=== PATIENT | female | born 1980 | race Caucasian/White ===

== ENCOUNTER 2016-05-15 15:57 | Emergency (ER) | payer MEDICAID ==
[~2016-05-15] VITALS: Ht 154.9 cm; Wt 76.0 kg
[~2016-05-15 15:57] MED LIST: IBUP-1542 PO; PREN-29 PO
[2016-05-15 16:01] VITALS: Ht 154.9 cm; Wt 76.0 kg
[2016-05-15] MEDS ORDERED: AZIT250T94 PO (16:44)
[2016-05-15] MEDS ORDERED: IBUP-1542 PO (16:44)
[2016-05-15] MEDS ORDERED: BENZ100C70 PO (16:44)
--- NOTE | 2016-05-15 17:03 | ERD ---
ER Documentation Chief Complaint Date/Time DATE: 05/15/16 TIME: 16:59 Chief Complaint FEVER , LT EAR ACHE , RUNNY NOSE X 1 WEEK HPI 35-year-old female with no significant past medical history presents to the ED complaining of left ear pain and feeling like she has a left ear clogging. States that she has had a productive cough since 1 week ago. States that she has been only taking Tylenol for her symptoms. Reports that her daughter and are also sick with similar symptoms. Denies any chest pain, shortness of breath, wheezing, abdominal pain, nausea, vomiting, diarrhea, rashes, sinus pain, dyspnea on exertion, orthopnea, leg swelling. ROS All systems reviewed and are negative except as per history of present illness. Medications Home Meds Active Scripts Benzonatate* (Tessalon Perle*) 100 Mg Capsule, 100 MG PO Q8H Y for COUGH, #30 CAP Prov:TRISTA ALFONSO-C 05/15/16 Azithromycin* (Zithromax*) 250 Mg Tablet, 250 MG PO .ZPACK DIRECTED, #6 TAB TAKE 500 MG (2 TABS) THE FIRST DAY THEN 250 MG (1 TAB) DAYS 2-5 Prov:TRISTA ALFONSO-C 05/15/16 Ibuprofen* (Motrin*) 600 Mg Tab, 600 MG PO Q6, #30 TAB Prov:TRISTA ALFONSO PA-C 05/15/16 Ibuprofen* (Motrin*) 600 Mg Tab, 600 MG PO Q6, #30 TAB Prov:TRISTA ALFONSO-C 11/12/15 Reported Medications Vit-Fe Fumarate-FA* (Umair Tablet*) 1 Tab Tablet, 1 TAB PO DAILY, TAB 03/22/14 Allergies Allergies: Coded Allergies: Penicillins (Verified Allergy, Intermediate, RASH, 01/21/12) PMhx/Soc History of Surgery: No Anesthesia Reaction: No Hx Neurological Disorder: No Hx Respiratory Disorders: No Hx Cardiac Disorders: No Hx Psychiatric Problems: No Hx Miscellaneous Medical Probl: No Hx Alcohol Use: No Hx Substance Use: No Hx Tobacco Use: No Physical Exam Vitals Vital Signs Date Time Temp Pulse Resp B/P Pulse Ox O2 Delivery O2 Flow Rate FiO2 05/15/16 16:01 99.6 67 18 124/62 98 Physical Exam Const: [id number], well-nourished. In no acute distress. Head: Atraumatic, normocephalic Eyes: Normal Conjunctiva without injection. No purulent discharge. PERRL. EOMI ENT: Normal external ear. Right ear canal without erythema. Right tympanic membrane pearly vega without effusion or bulging. Left erythematous ear canal with decreased light reflex. Nasal canal clear with normal turbinates. Moist oropharynx without tonsillar exudates. Non-erythematous pharynx. Uvula midline. No drooling. No trismus. Neck: Full range of motion. No meningismus. No cervical lymphadenopathy. Resp: Clear to auscultation bilaterally. No wheezing, rhonchi, rales, or crackles. No accessory muscle use. No retractions. Cardio: Regular rate and rhythm. No murmurs, rubs or gallops. Abd: Soft, non tender, non distended. Normal bowel sounds. No palpable masses. No rebound tenderness. No guarding. Skin: No petechiae or rashes Back: No midline tenderness. No CVA tenderness. Ext: No cyanosis, or edema. Neur: Awake and alert. Psych: Normal Mood and Affect Procedures/MDM This is a 35-year-old female with no significant past medical history presents the ED complaining of left ear pain and dry cough since 1 week ago. Patient is afebrile and nontoxic-appearing. This patient presents to the ED with symptoms consistent with a viral acute upper respiratory infection with possible left otitis media. Patient's physical exam include lungs which were clear to auscultation and a normal pulse oximetry. There is a low suspicion for pneumonia , pneumothorax, CHF, cardiac dysrhythmias, acute MN, pulmonary embolism, epiglottitis, viral/strep pharyngitis, sinusitis, peritonsillar abscess, mastoiditis, retropharyngeal abscess, meningitis, sepsis, acute abdomen or other emergent conditions. Patient does not have tenderness to palpation of tragus or mastoid. Low suspicion for otitis externa or mastoiditis. Fluids, rest , and symptomatic treatment are recommended for the management of patient's symptoms. Discharge medications: Tessalon Perles, Zithromax, Ibuprofen Patient was instructed to return to the ED for any new or worsening symptoms. They should otherwise follow up with the primary care provider within 1-2 days. The patient's questions were answered at the time of discharge. Patient understood and agreed with discharge management. Departure Diagnosis: Primary Impression: URI (upper respiratory infection) URI type: unspecified URI Qualified Code: J06.9 - Upper respiratory tract infection, unspecified type Additional Impression: Left ear pain Condition: Stable Patient Instructions: Otitis Media, Abx Tx (Adult), Uri, Viral, No Abx (Adult) Referrals: [facility] YOU HAVE RECEIVED A MEDICAL SCREENING EXAM AND THE RESULTS INDICATE THAT YOU DO NOT HAVE A CONDITION THAT REQUIRES URGENT TREATMENT IN THE EMERGENCY DEPARTMENT. FURTHER EVALUATION AND TREATMENT OF YOUR CONDITION CAN WAIT UNTIL YOU ARE SEEN IN YOUR DOCTORS OFFICE WITHIN THE NEXT 1-2 DAYS. IT IS YOUR RESPONSIBILITY TO MAKE AN APPOINTMENT FOR FOLOW-UP CARE. IF YOU HAVE A PRIMARY DOCTOR --you should call your primary doctor and schedule an appointment IF YOU DO NOT HAVE A PRIMARY DOCTOR YOU CAN CALL OUR PHYSICIAN REFERRAL HOTLINE AT IF YOU CAN NOT AFFORD TO SEE A PHYSICIAN YOU CAN CHOSE FROM THE FOLLOWING [facility] [address] [facility]. [facility] [address] [facility] [address] [facility] [address] [facility] [facility] [address] [facility]. [facility] [address] [facility]. [facility] [address] [facility]. [facility] YOU HAVE RECEIVED A MEDICAL SCREENING EXAM AND THE RESULTS INDICATE THAT YOU DO NOT HAVE A CONDITION THAT REQUIRES URGENT TREATMENT IN THE EMERGENCY DEPARTMENT. FURTHER EVALUATION AND TREATMENT OF YOUR CONDITION CAN WAIT UNTIL YOU ARE SEEN IN YOUR DOCTORS OFFICE WITHIN THE NEXT 1-2 DAYS. IT IS YOUR RESPONSIBILITY TO MAKE AN APPOINTMENT FOR FOLOW-UP CARE. IF YOU HAVE A PRIMARY DOCTOR --you should call your primary doctor and schedule and appointment IF YOU DO NOT HAVE A PRIMARY DOCTOR YOU CAN CALL OUR PHYSICIAN REFERRAL HOTLINE AT . IF YOU CAN NOT AFFORD TO SEE A PHYSICIAN YOU CAN CHOSE FROM THE FOLLOWING [facility] INSTITUTIONS: [facility] [address] [place] [address] [facility] [address] [place] [address] [facility] [address] [place] [address] [facility]CIALT[facility] Additional Instructions: Visite a teague case paulino para un EXAMEN.Regrese a estas instalaciones si no se mejora jackelyn esperbamos o jackelyn le dijimos. TRISTA ALFONSO PA-C May 15, 2016 17:02
== END 2016-05-15 16:45 | disposition home or self-care (01) ==
LOC: E/R 15:57
DX: J06.9 Acute upper respiratory infection, unspecified (principal)
CPT/HCPCS: 99284

== ENCOUNTER 2016-07-09 12:01 | Emergency (ER) | payer MEDICAID ==
[~2016-07-09] VITALS: Wt 71.0 kg
[~2016-07-09 12:01] MED LIST changes: +AZIT250T94 PO; +BENZ100C70 PO
--- NOTE | 2016-07-09 12:53 | ERD ---
ER Documentation Chief Complaint Date/Time DATE: 07/09/16 TIME: 12:50 Chief Complaint LEFT LEG PAIN X 2 WEEKS HPI Patient is a 35-year-old female who presents with 2 weeks of redness and swelling to the left medial calf. Patient states that the symptoms began as a small pimple and have gradually gradually enlarged, but have been stable for the last week. No fevers, no trauma, no swelling of the extremity, no tenderness outside of the focal area of erythema. Patient states that she is 7 weeks . ROS All systems reviewed and are negative except as per history of present illness. Medications Home Meds Active Scripts Cephalexin* (Keflex*) 500 Mg Capsule, 500 MG PO QID for 7 Days, CAP Prov:SHERRIE NELSON 07/09/16 Benzonatate* (Tessalon Perle*) 100 Mg Capsule, 100 MG PO Q8H Y for COUGH, #30 CAP Prov:TRISTA ALFONSO-C 05/15/16 Azithromycin* (Zithromax*) 250 Mg Tablet, 250 MG PO .ZPACK DIRECTED, #6 TAB TAKE 500 MG (2 TABS) THE FIRST DAY THEN 250 MG (1 TAB) DAYS 2-5 Prov:TRISTA ALFONSO PA-C 05/15/16 Ibuprofen* (Motrin*) 600 Mg Tab, 600 MG PO Q6, #30 TAB Prov:TRISTA ALFONSO PA-C 05/15/16 Ibuprofen* (Motrin*) 600 Mg Tab, 600 MG PO Q6, #30 TAB Prov:TRISTA ALFONSO PA-C 11/12/15 Reported Medications Vit-Fe Fumarate-FA* (Umair Tablet*) 1 Tab Tablet, 1 TAB PO DAILY, TAB 03/22/14 Allergies Allergies: Coded Allergies: Penicillins (Verified Allergy, Intermediate, RASH, 01/21/12) PMhx/Soc Past medical history: Denies Past surgical history: Denies Social history: No alcohol or tobacco History of Surgery: No Anesthesia Reaction: No Hx Neurological Disorder: No Hx Respiratory Disorders: No Hx Cardiac Disorders: No Hx Psychiatric Problems: No Hx Miscellaneous Medical Probl: No Hx Alcohol Use: No Hx Substance Use: No Hx Tobacco Use: No Smoking Status: Never smoker FmHx Family History: No diabetes Physical Exam Vitals Vital Signs Date Time Temp Pulse Resp B/P Pulse Ox O2 Delivery O2 Flow Rate FiO2 07/09/16 12:16 98.0 81 18 130/68 99 Physical Exam Const: Alert, oriented, no acute distress Head: Atraumatic Eyes: Normal Conjunctiva ENT: Normal External Ears, Nose and Mouth. Neck: Full range of motion..~ No meningismus. Resp: Clear to auscultation bilaterally Cardio: Regular rate and rhythm, no murmurs Abd: Soft, non tender, non distended. Normal bowel sounds Skin: Left medial calf has area of approximately 3 cm of erythema and induration, blanching, no fluctuance, no bullae Back: No midline or flank tenderness Ext: No cyanosis, or edema, no generalized calf tenderness or medial thigh tenderness Neur: Awake and alert Psych: Normal Mood and Affect Results 24 hrs Current Medications Medications (Trade) Dose Ordered Sig/Keny Route PRN Reason Start Time Stop Time Status Last Admin Dose Admin Lidocaine/ Epinephrine (Xylocaine 1%/ Epi (Mdv) 20 ml) 20 ml ONCE ONCE SC 07/09/16 13:00 07/09/16 13:01 DC Procedures/MDM Procedure: Patient verbally consented for incision and drainage of left calf abscess. Skin cleaned with Betadine. 3 cc 1% lidocaine with epinephrine injected in local block. Needle aspiration performed with 18-gauge needle with small amount of pus drained. 5 mm incision made with 11 blade scalpel. Abscess probed with bluntly with Tayler forceps and moderate amount of pus expressed. Procedure well-tolerated, no immediate complication. Sterile dry dressing applied. MDM: Patient with erythema and induration of left calf found to have abscess. Incision and drainage performed to good effect. Given small area of surrounding cellulitis will discharge patient with 70 course of Keflex. Patient does have penicillin allergy but has never taken cephalosporins, and risk of cross reaction is very low. In addition the patient is so there are few safe options for outpatient treatment of cellulitis. Patient is advised to return for any worsening of infection or medication reaction to take Tylenol for pain. Departure Diagnosis: Primary Impression: Abscess of leg Condition: SHERRIE Acosta Jul 09, 2016 12:53
[2016-07-09] MEDS ORDERED: LIDOCAINE 1%/EPI (MDV) 20 ML INJ SC ONE (13:00)
[2016-07-09] MEDS ORDERED: CEPH-443 PO (13:23)
== END 2016-07-09 13:50 | disposition home or self-care (01) ==
LOC: FTE 12:01
DX: L02.416 Cutaneous abscess of left lower limb (principal)
CPT/HCPCS: 10060; Z7502; Z7610

== ENCOUNTER 2016-07-12 10:52 | Emergency (ER) | payer MEDICAID ==
[~2016-07-12] VITALS: Ht 160 cm; Wt 89.0 kg
[~2016-07-12 10:52] MED LIST changes: +CEPH-443 PO
[2016-07-12 11:00] VITALS: Ht 160 cm; Wt 89.0 kg
--- NOTE | 2016-07-12 13:25 | ERD ---
ER Documentation Chief Complaint Date/Time DATE: 07/12/16 TIME: 13:24 Chief Complaint leftr leg wound check HPI This 35-year-old female presents here for a wound check on her left thigh abscess drained 2 days ago. She is taking antibiotics. She states that her pain and swelling is improved. ROS All systems reviewed and are negative except as per history of present illness. Medications Home Meds Active Scripts Cephalexin* (Keflex*) 500 Mg Capsule, 500 MG PO QID for 7 Days, CAP Prov:SHERRIE NELSON 07/09/16 Benzonatate* (Tessalon Perle*) 100 Mg Capsule, 100 MG PO Q8H Y for COUGH, #30 CAP Prov:TRISTA ALFONSO-C 05/15/16 Azithromycin* (Zithromax*) 250 Mg Tablet, 250 MG PO .ZPACK DIRECTED, #6 TAB TAKE 500 MG (2 TABS) THE FIRST DAY THEN 250 MG (1 TAB) DAYS 2-5 Prov:TRISTA ALFONSO-C 05/15/16 Ibuprofen* (Motrin*) 600 Mg Tab, 600 MG PO Q6, #30 TAB Prov:TRISTA ALFONSO PA-C 05/15/16 Ibuprofen* (Motrin*) 600 Mg Tab, 600 MG PO Q6, #30 TAB Prov:TRISTA ALFONSO-C 11/12/15 Reported Medications Vit-Fe Fumarate-FA* (Umair Tablet*) 1 Tab Tablet, 1 TAB PO DAILY, TAB 03/22/14 Allergies Allergies: Coded Allergies: Penicillins (Verified Allergy, Intermediate, RASH, 01/21/12) PMhx/Soc History of Surgery: No Anesthesia Reaction: No Hx Neurological Disorder: No Hx Respiratory Disorders: No Hx Cardiac Disorders: No Hx Psychiatric Problems: No Hx Miscellaneous Medical Probl: No Hx Alcohol Use: No Hx Substance Use: No Hx Tobacco Use: No Physical Exam Vitals Vital Signs Date Time Temp Pulse Resp B/P Pulse Ox O2 Delivery O2 Flow Rate FiO2 07/12/16 11:00 98.2 89 18 139/89 99 Physical Exam Const: [] Head: Atraumatic Eyes: Normal Conjunctiva ENT: Normal External Ears, Nose and Mouth. Neck: Full range of motion..~ No meningismus. Resp: Clear to auscultation bilaterally Cardio: Regular rate and rhythm, no murmurs Abd: Soft, non tender, non distended. Normal bowel sounds Skin: No petechiae or rashes. On the left medial thigh there is a healing abscess with some mild residual induration without appreciable fluctuance, erythema, warmth, streaking Back: No midline or flank tenderness Ext: No cyanosis, or edema Neur: Awake and alert Psych: Normal Mood and Affect Procedures/MDM Patient presents with a satisfactorily appearing healing abscess on left medial thigh. Patient was discharged home with instructions to continue wound care, instructions to continue antibiotics and return for redness, fevers, new or worsening symptoms Departure Diagnosis: Primary Impression: Encounter for wound re-check Condition: Stable Patient Instructions: Post Op Wound Check, Pain Additional Instructions: CONTINUA ANTIBIOTICOS. JEAN LYNN MD Jul 12, 2016 13:25
== END 2016-07-12 14:06 | disposition home or self-care (01) ==
LOC: FTE 10:52
DX: Z48.01 Encounter for change or removal of surgical wound dressing (principal)
CPT/HCPCS: 99281

== ENCOUNTER 2016-07-18 19:40 | Emergency (ER) | payer MEDICAID ==
[~2016-07-18] VITALS: Ht 157.5 cm; Wt 75.0 kg
[2016-07-18 20:41] VITALS: Ht 157.5 cm; Wt 75.0 kg
[2016-07-18 23:53] LABS: ADD SCAN DIFF NO
[2016-07-18 23:54] LABS: BASOPHIL # 0.1 10^3/ul (0.0-0.1); BASOPHILS % 0.3 % (0.0-2.0); EOSINOPHILS # 0.4 10^3/ul (0.0-0.5); EOSINOPHILS % 2.9 % (0.0-7.0); HEMATOCRIT 38.3 % (37.0-47.0); HEMOGLOBIN 12.9 g/dl (12.0-16.0); LYMPHOCYTES # 4.2 10^3/ul (0.8-2.9); LYMPHOCYTES % 29.5 % (15.0-51.0); MEAN CORPUSCULAR HEMOGLOBIN 30.4 pg (29.0-33.0); MEAN CORPUSCULAR HGB CONC 33.7 g/dl (32.0-37.0); MEAN CORPUSCULAR VOLUME 90.3 fl (82.0-101.0); MEAN PLATELET VOLUME 9.4 fl (7.4-10.4); MONOCYTE # 0.6 10^3/ul (0.3-0.9); MONOCYTES % 4.2 % (0.0-11.0); NEUTROPHILS % 62.9 % (39.0-77.0); PLATELET COUNT 426 10^3/UL (140-415); RED BLOOD COUNT 4.24 10^6/ul (4.20-5.40); RED CELL DISTRIBUTION WIDTH 12.8 % (11.5-14.5); WHITE BLOOD COUNT 14.4 10^3/ul (4.8-10.8)
[2016-07-19 00:05] LABS: ADD UMIC YES; URINE BILIRUBIN (Dip) NEGATIVE (NEGATIVE); URINE BLOOD (Dip) NEGATIVE (NEGATIVE); URINE COLOR LT. YELLOW (YELLOW); URINE GLUCOSE (Dip) NEGATIVE (NEGATIVE); URINE KETONES (Dip) NEGATIVE (NEGATIVE); URINE LEUKOCYTE ESTERASE (Dip) 1+ (NEGATIVE); URINE NITRITE (Dip) NEGATIVE (NEGATIVE); URINE TOTAL PROTEIN (Dip) NEGATIVE (NEGATIVE); URINE UROBILINOGEN (Dip) 0.2 E.U./dL (0.1-1.0)
[2016-07-19 00:09] LABS: ALBUMIN 4.4 g/dl (3.3-4.9)
[2016-07-19 00:10] LABS: POTASSIUM 3.9 mmol/L (3.5-5.1)
[2016-07-19 00:12] LABS: ALBUMIN/GLOBULIN RATIO 1.18; BILIRUBIN,INDIRECT 0.2 mg/dl (0-1.1); BILIRUBIN,TOTAL 0.2 mg/dl (0.2-1.3); CREATININE 0.52 mg/dl (0.44-1.00); TOTAL PROTEIN 8.1 g/dl (6.1-8.1)
[2016-07-19 00:13] LABS: CALCIUM 9.4 mg/dl (8.4-10.2)
[2016-07-19 00:16] LABS: SQUAMOUS EPITHELIAL CELL,UR MODERATE; URINE RBCS 0-2 /HPF (0)
[2016-07-19 00:17] LABS: BACTERIA,URINE FEW
--- NOTE | 2016-07-19 00:41 | ERD ---
ER Documentation Chief Complaint Date/Time DATE: 07/19/16 TIME: 00:37 Chief Complaint AP X 2 days HPI 35-year-old female presents with chief complaint of diarrhea 2 days. Patient states that she has had multiple episodes diarrhea yesterday and today. Associated symptoms include abdominal cramping only during episodes of diarrhea. She denies hematochezia, nausea, vomiting, constant abdominal pain, pelvic pain, vaginal bleeding, and fever. She denies recent travel. She denies any sick contacts with similar symptoms. ROS All systems reviewed and are negative except as per history of present illness. Medications Home Meds Active Scripts Nitrofurantoin Monohyd Macrocr* (Macrobid*) 100 Mg Capsr, 100 MG PO BID for 5 Days, #10 CAP Prov:Ghazala Javier PA-C 07/19/16 Cephalexin* (Keflex*) 500 Mg Capsule, 500 MG PO QID for 7 Days, CAP Prov:SHERRIE NELSON 07/09/16 Benzonatate* (Tessalon Perle*) 100 Mg Capsule, 100 MG PO Q8H Y for COUGH, #30 CAP Prov:TRISTA ALFONSO PA-C 05/15/16 Azithromycin* (Zithromax*) 250 Mg Tablet, 250 MG PO .ZPACK DIRECTED, #6 TAB TAKE 500 MG (2 TABS) THE FIRST DAY THEN 250 MG (1 TAB) DAYS 2-5 Prov:TRISTA ALFONSO PA-C 05/15/16 Ibuprofen* (Motrin*) 600 Mg Tab, 600 MG PO Q6, #30 TAB Prov:TRISTA ALFONSO PA-C 05/15/16 Ibuprofen* (Motrin*) 600 Mg Tab, 600 MG PO Q6, #30 TAB Prov:TRISTA ALFONSO PA-C 11/12/15 Reported Medications Vit-Fe Fumarate-FA* (Umair Tablet*) 1 Tab Tablet, 1 TAB PO DAILY, TAB 03/22/14 Allergies Allergies: Coded Allergies: Penicillins (Verified Allergy, Intermediate, RASH, 01/21/12) PMhx/Soc Medical and Surgical Hx: pt denies Medical Hx, pt denies Surgical Hx History of Surgery: No Anesthesia Reaction: No Hx Neurological Disorder: No Hx Respiratory Disorders: No Hx Cardiac Disorders: No Hx Psychiatric Problems: No Hx Miscellaneous Medical Probl: No Hx Alcohol Use: No Hx Substance Use: No Hx Tobacco Use: No Smoking Status: Never smoker Physical Exam Vitals Vital Signs Date Time Temp Pulse Resp B/P Pulse Ox O2 Delivery O2 Flow Rate FiO2 07/19/16 01:29 61 16 147/69 98 Room Air 07/18/16 20:41 98.3 68 18 122/85 99 Physical Exam GENERAL: Non-toxic. No apparent signs of distress. LUNGS: Clear to auscultation. No accessory muscle use. No wheezing, no crackles. No signs or symptoms of respiratory distress. HEART: Regular rate and rhythm. No murmurs, clicks, rubs or gallops. ABDOMEN: Soft, nontender and nondistended. Bowel sounds positive. No rebound or guarding. No gross peritoneal signs. No Pruett or McBurney point tenderness. No gross masses. BACK: No midline tenderness, no costovertebral tenderness. NEURO: Cranial nerves are grossly intact. Normal mental status for age. Good muscle tone. SKIN: There is no apparent rash, petechiae, erythema or swelling. Good skin turgor. Result Diagram: 07/18/16 2347 07/18/16 2347 Results 24 hrs Laboratory Tests Test 07/18/16 23:47 07/18/16 23:50 Alanine Aminotransferase (ALT/SGPT) 23IU/L Albumin 4.4g/dl Albumin/Globulin Ratio 1.18 Alkaline Phosphatase 95IU/L Anion Gap 17 Aspartate Amino Transf (AST/SGOT) 16IU/L Basophils # 0.110^3/ul Basophils % 0.3% Beta HCG, Quantitative 39761.0mIU/ml Blood Urea Nitrogen 8mg/dl Calcium Level 9.4mg/dl Carbon Dioxide Level 24mmol/L Chloride Level 104mmol/L Creatinine 0.52mg/dl Direct Bilirubin 0.00mg/dl Eosinophils # 0.410^3/ul Eosinophils % 2.9% Globulin 3.70g/dl Glucose Level 85mg/dl Hematocrit 38.3% Hemoglobin 12.9g/dl Indirect Bilirubin 0.2mg/dl Lymphocytes # 4.210^3/ul Lymphocytes % 29.5% Mean Corpuscular Hemoglobin 30.4pg Mean Corpuscular Hemoglobin Concent 33.7g/dl Mean Corpuscular Volume 90.3fl Mean Platelet Volume 9.4fl Monocytes # 0.610^3/ul Monocytes % 4.2% Neutrophils # 9.010^3/ul Neutrophils % 62.9% Nucleated Red Blood Cells # 0.010^3/ul Nucleated Red Blood Cells % 0.0/100WBC Platelet Count 55716^3/UL Potassium Level 3.9mmol/L Red Blood Count 4.2410^6/ul Red Cell Distribution Width 12.8% Sodium Level 141mmol/L Total Bilirubin 0.2mg/dl Total Protein 8.1g/dl White Blood Count 14.410^3/ul Urine Bacteria FEW Urine Bilirubin NEGATIVE Urine Clarity SL HAZY Urine Color LT. YELLOW Urine Glucose NEGATIVE% Urine Hemoglobin NEGATIVE Urine Ketones NEGATIVE Urine Leukocyte Esterase 1+ Urine Microscopic RBC 0-2/HPF Urine Microscopic WBC 5-10/HPF Urine Nitrite NEGATIVE Urine Specific [place] 1.010 Urine Squamous Epithelial Cells MODERATE Urine Total Protein NEGATIVE Urine Urobilinogen 0.2 E.U./dL Urine pH 6.0 Procedures/MDM Patient appeared to be in no acute distress, she states that symptoms started 2 days ago she is currently afebrile with stable vitals. I ordered a CBC, CMP to assess for severe dehydration or electrolyte imbalance. In addition I ordered a stool culture even though duration has been short due to patient being and increased risk of infections during . Awaiting results prior to further evaluation. CBC: No signs of anemia or hemoconcentration, there is a mild leukocytosis which is likely due to stress reaction or viral gastroenteritis CMP: No signs of severe dehydration or electrolyte imbalance Beta hCG quant: 54, 172 (appropriate for 8 week ) UA: 1+ leukocyte esterase, no nitrites Patient's labs do not suggest severe infection or dehydration. I explained to the patient that acute episodes of diarrhea not treated with antimotility agents generally. Symptoms should remove resolve within the next few days. She is scheduled for an ultrasound tomorrow with her [facility]. At this time low suspicion for hypokalemia, acute surgical abdomen, severe dehydration, and metabolic acidosis. Patient is stable for discharge and outpatient management. Provided a prescription for Macrobid. Advised to follow-up with PCP in 1-2 days. And keep her scheduled appointment [facility] tomorrow. Departure Diagnosis: Primary Impression: Diarrhea Diarrhea type: unspecified type Qualified Code: R19.7 - Diarrhea, unspecified type Additional Impression: UTI (urinary tract infection) Urinary tract infection type: acute cystitis Hematuria presence: without hematuria Qualified Code: N30.00 - Acute cystitis without hematuria Condition: Ghazala Fishman PA-C Jul 19, 2016 00:41
[2016-07-19] MEDS ORDERED: NITR-58 PO (01:06)
[2016-07-19 01:29] VITALS: BP 147/69; PULSE 61; RESP 16
== END 2016-07-19 01:30 | disposition home or self-care (01) ==
LOC: FTE 19:40
DX: O99.89 Other specified diseases and conditions complicating pregnancy, childbirth and the puerperium (principal); R19.7 Diarrhea, unspecified; O23.11 Infections of bladder in pregnancy, first trimester; Z3A.08 8 weeks gestation of pregnancy
CPT/HCPCS: 80053; 81001; 84702; 85025; Z7502; 81003; 99283

== ENCOUNTER 2017-02-07 20:10 | Inpatient (IN) | payer MEDICAID ==
[~2017-02-07] VITALS: Ht 154.9 cm; Wt 83.6 kg
[~2017-02-07 20:10] MED LIST changes: +NITR-58 PO
[2017-02-07 20:35] VITALS: BP 120/64; PULSE 78; RESP 16
[2017-02-07 20:36] VITALS: Ht 154.9 cm; Wt 83.6 kg
--- NOTE | 2017-02-07 21:58 | RADRPT ---
PROCEDURE: Obstetrical ultrasound CLINICAL INDICATION: . OB ultrasound with fluid volume assessment. TECHNIQUE: Transabdominal sonographic images of the uterus obtained after first trimester , greater than 14 weeks gestation. Single intrauterine gestation present. Examination for fluid volu me assessment. COMPARISON: 12/20/2016 FINDINGS: Presentation: Cephalic Partially visualized placenta: anterior heart rate: 138 Beats per minute. IMPRESSION: Amniotic fluid index equals 5.8 cm. Previously 12.8 cm. Borderline oligohydramnios. RPTAT: AADD .Sanju Yu MD, MD Date Time Electronically viewed and signed by .Sanju Yu MD, on 02/07/2017 21:57 .B/
[2017-02-07] MEDS ORDERED: OXYTOCIN 30 UNITS/LR 500 ML IV SCH ×2 (23:00)
[2017-02-07] MEDS ORDERED: MISOPROSTOL 200 MCG TAB PR PRN (23:00)
[2017-02-07] MEDS ORDERED: CARBOPROST 250 MCG INJ IM PRN (23:00)
[2017-02-07] MEDS ORDERED: IBUPROFEN 600 MG TAB PO PRN (23:00)
[2017-02-07] MEDS ORDERED: METHYLERGONOVINE 0.2 MG INJ IM PRN (23:00)
[2017-02-07] MEDS ORDERED: OXYTOCIN 30 UNITS/LR 500 ML IV PRN (23:00)
[2017-02-07] MEDS ORDERED: BUTORPHANOL 2 MG INJ IV PRN (23:00)
[2017-02-07] MEDS ORDERED: LIDOCAINE 1% (MPF) 30 ML INJ INJ PRN (23:00)
[2017-02-07] MEDS ORDERED: DINOPROSTONE 10 MG VAG SUPP VAG ONE (23:00)
[2017-02-08] MEDS ORDERED: CLINDAMYCIN 900 MG/D5W (PMX) 50 ML IVPB SCH
[2017-02-08] MEDS: LACTATED RINGER'S 1,000 ML IV SCH ×3 (00:17→15:57)
--- NOTE | 2017-02-08 00:30 | TRIAGE ---
OB Triage Datetime Report Generated by CPN: 02/08/2017 00:30 Datetime: 02/07/2017 23:42 Assessment Type: Admission Assessment Vaginal Bleeding: None Maternal Assessment Level of Consciousness: Fully Conscious DTR's/Clonus: DTRs 2+; No Clonus Headache: Denies Blurred Vision: No Respiratory Effort: Unlabored; Regular Rhythm; Equal Expansion Breath Sounds, Left: Clear and Equal Breath Sounds, Right: Clear and Equal Nausea/Vomiting: Denies RUQ Epigastric Pain: Denies Lower Extremities Edema: None Degree: None Upper Extremities Edema: None Degree: None Facial Edema: None Fall Risk Assessment History of Falling: (0) No Secondary Diagnosis: (0) No Ambulatory Aid: (0) Bedrest/Nurse Assist IV Therapy: (0) No Gait: (0) Normal/Bedrest/Immobile Mental Status: (0) Oriented to Own Ability Fall Score: 0 Fall Risk Score Definition: No Risk: No action required Pain Assessment Pain Scale: 0 Pain Presence: None/Denies Datetime: 02/07/2017 23:37 Membrane Status: Intact Datetime: 02/07/2017 23:15 Stage of : Labor Datetime: 02/07/2017 21:40 Stage of : OB Triage Labor Evaluation Frequency: 2--8 Monitor Mode: External Duration (sec)2399: 20-100sec Quality: Mild Pattern: Normal: <= 5 Contractions in 10 Minutes Resting Tone [place]: Relaxed Heart Rate FHR Baseline Rate: 135 Monitor Mode: External US Variability: Moderate 6-25 bpm Accelerations: 15X15 Datetime: 02/07/2017 21:03 Pain Presence: None/Denies Pain Type: N/A Datetime: 02/07/2017 20:52 Vaginal Exam Dilatation (cms): 0.0 Effacement (%): 30 Station: -3 Cervix, Position: Posterior Datetime: 02/07/2017 20:32 Assessment Type: Triage Maternal Assessment Level of Consciousness: Fully Conscious DTR's/Clonus: DTRs 2+; No Clonus Headache: Denies Blurred Vision: No Respiratory Effort: Unlabored; Regular Rhythm; Equal Expansion Breath Sounds, Left: Clear and Equal Breath Sounds, Right: Clear and Equal Nausea/Vomiting: Denies RUQ Epigastric Pain: Denies Lower Extremities Edema: Bilateral Lower Extremities Degree: 1+ Upper Extremities Edema: None Degree: None Facial Edema: None Fall Risk Assessment History of Falling: (0) No Secondary Diagnosis: (0) No Ambulatory Aid: (0) Bedrest/Nurse Assist IV Therapy: (0) No Gait: (0) Normal/Bedrest/Immobile Mental Status: (0) Oriented to Own Ability Fall Score: 0 Fall Risk Score Definition: No Risk: No action required Datetime: 02/07/2017 20:31 Time of Arrival: 02/07/2017 23:15 EGA: 38.0 Arrived By: Ambulatory Arrived From: Home Datetime: 02/07/2017 20:28 Time of Arrival: 02/07/2017 20:04 Arrived By: Wheelchair Arrived From: Emergency Dept Chief Complaint: X1 CONTRACTION AT 0900 THAT LASTED A MINUTE AND THEN X1 CONTRACTION AT 1700 LASTI NG 1MIN BUT ONCE AGAIN RESOLVED AND PT NOT FEELING UC'S AT THIS TIME. Movement: Present Contractions: Irregular Time Contractions Began: 02/07/2017 17:00 Rupture of Membranes: Denies Vaginal Bleeding: None Vaginal Discharge: Denies Recent Sexual Intercouse: Denies Abdominal Trauma: Not Applicable Patient Complaints: Contractions Additional Patient Complaints: POSSIBLE LEAKING NOTED AT 0900 BUT NONE THEREAFTER Time Provider Notified: 02/07/2017 20:57 Provider Notified: Dr Botello Initial Plan: MONITOR BABY
[2017-02-08 01:04] LABS: BASOPHILS % 0.2 % (0.0-2.0); EOSINOPHILS # 0.2 10^3/ul (0.0-0.5); EOSINOPHILS % 1.3 % (0.0-7.0); HEMATOCRIT 37.5 % (37.0-47.0); HEMOGLOBIN 12.3 g/dl (12.0-16.0); LYMPHOCYTES # 3.1 10^3/ul (0.8-2.9); LYMPHOCYTES % 25.1 % (15.0-51.0); MEAN CORPUSCULAR HEMOGLOBIN 29.1 pg (29.0-33.0); MEAN CORPUSCULAR HGB CONC 32.8 g/dl (32.0-37.0); MEAN CORPUSCULAR VOLUME 88.7 fl (82.0-101.0); MEAN PLATELET VOLUME 11.2 fl (7.4-10.4); MONOCYTE # 0.7 10^3/ul (0.3-0.9); MONOCYTES % 5.6 % (0.0-11.0); NEUTROPHIL # 8.3 10^3/ul (1.6-7.5); NEUTROPHILS % 67.3 % (39.0-77.0); PLATELET COUNT 280 10^3/UL (140-415); RED BLOOD COUNT 4.23 10^6/ul (4.20-5.40); RED CELL DISTRIBUTION WIDTH 15.2 % (11.5-14.5); WHITE BLOOD COUNT 12.2 10^3/ul (4.8-10.8)
[2017-02-08 01:20] LABS: INR 1.02; PROTIME 13.4 Sec (12.2-14.2)
[2017-02-08 01:21] LABS: PARTIAL THROMBOPLASTIN TIME 28.4 Sec (25.0-35.0)
--- NOTE | 2017-02-08 01:40 | RADRPT ---
PROCEDURE: OBSTETRICAL ULTRASOUND LIMITED CLINICAL INDICATION: 36 years of age, female. . Labor. TECHNIQUE: Multiple sonographic images of the pelvis were obtained. Transabdominal imaging only w as performed. The images were reviewed on a PACS workstation. Image quality: Satisfactory. COMPARISON: Amniotic fluid index from earlier the same day FINDINGS: [place] : Number of fetuses: 1 GENERAL EVALUATION: Cardiac activity: Present. FHR 166 bpm Presentation: Cephalic Placenta: Placenta site: Anterior. No evidence of placental previa. Placental grade 2. Amniotic fluid: Oligohydramnios ABAD 5.2 cm. Cervix (transabdominal): Not evaluated DATING: EGA by dates: 38 weeks 0 days DIOR by dates: February 21, 2017 BIOMETRY: BPD = not measured HC = 32.3 cm , 36 weeks 3 days AC = 32.9 cm , 36 weeks 6 days FL = 7.3 cm , 37 weeks 4 days Composite sonographic age: 37 weeks 0 days plus or minus 3 weeks Estimated due date by ultrasound measurements: February 28, 2017 EFW 3049 grams that is at the 32 percentile for gestational age. LIMITED ANATOMY: Not evaluated IMPRESSION: 1. Single living fetus in cephalic presentation. 2. Clinical gestation age of 38 weeks 0 days and clinical DIOR February 21, 2017 are concordant with the composite sonographic age within 1 week. 3. Estimated weight is 3049 grams that is at the 32nd percentile for gestational age. 4. Oligohydramnios. Amniotic fluid index is 5.2 cm. 5. Anterior placenta grade 2. Findings were discussed with Candy Milner RN by Dr. Vicki Chávez on February 08, 2017 at 1:40 AM. RPTAT: HCTS Physician Eulalia Date Time Electronically viewed and signed by Physician Eulalia on 02/08/2017 01:40 CS/
[2017-02-08] MEDS ORDERED: LACTATED RINGER'S 1,000 ML IV PRN (02:00)
[2017-02-08] MEDS: CLINDAMYCIN 900 MG/D5W (PMX) 50 ML IVPB SCH ×2 (08:23→15:57)
[2017-02-08] MEDS ORDERED: DINOPROSTONE 10 MG VAG SUPP VAG ONE (14:00)
[2017-02-08 21:15] LABS: ADD UMIC NO; UR ASCORBIC ACID NEGATIVE (NEGATIVE); UR BILIRUBIN (Dip) NEGATIVE (NEGATIVE); UR BLOOD (Dip) NEGATIVE (NEGATIVE); UR CLARITY CLEAR (CLEAR); UR COLOR STRAW (YELLOW); UR GLUCOSE (Dip) NEGATIVE (NEGATIVE); UR KETONES (Dip) 1+ mg/dL (NEGATIVE); UR LEUKOCYTE ESTERASE (Dip) NEGATIVE Leu/ul (NEGATIVE); UR NITRITE (Dip) NEGATIVE (NEGATIVE); UR TOTAL PROTEIN (Dip) NEGATIVE (NEGATIVE); UR UROBILINOGEN (Dip) NEGATIVE (NEGATIVE)
[2017-02-08] MEDS ORDERED: FENTAnyl 2MCG/ML-ROPIV 0.2% 100 ML ONE (22:10)
[2017-02-08] MEDS ORDERED: HYDROmorphONE 1 MG/ML SYG IV PRN ×2 (23:00)
[2017-02-08] MEDS ORDERED: KETOROLAC 30 MG INJ IV PRN (23:00)
[2017-02-08] MEDS ORDERED: DIPHENHYDRAMINE 50 MG INJ IV PRN (23:00)
[2017-02-08] MEDS ORDERED: ZOLPIDEM 5 MG TAB PO PRN (23:00)
[2017-02-08] MEDS ORDERED: NALOXONE (0.4 MG/ML) INJ IV PRN (23:00)
[2017-02-08] MEDS ORDERED: FENTAnyl 2MCG/ML-ROPIV 0.2% 100 ML BAG EPI SCH (23:00)
[2017-02-08] MEDS ORDERED: ONDANSETRON 4 MG INJ IV PRN (23:00)
[2017-02-09] MEDS: CLINDAMYCIN 900 MG/D5W (PMX) 50 ML IVPB SCH (00:16)
[2017-02-09] MEDS ORDERED: OXYTOCIN 30 UNITS/LR 500 ML IV SCH ×2 (00:30→03:00)
[2017-02-09] MEDS: LACTATED RINGER'S 1,000 ML IV SCH (02:36)
--- NOTE | 2017-02-09 03:59 | LDN ---
Date/Time of Note Date/Time of Note DATE: 02/09/17 TIME: 03:58 Delivery Summary pt delivered viable infant without complications Placenta Delivered: Spontaneously Laceration repair: 2nd degree lac repaited with 2-0 chromic Anesthesia type: Epidural Estimated blood loss: 150 Sponge & Needle done & correct: Yes All needle counts correct: Yes Any foreign bodies felt in the: No Problems: Infant Delivery Information Suctioning Nose & mouth suctioned at grover: Yes Delee suction performed: No Umbilical Cord Umbilical cord with: 3 Vessels Cord presentations: no nuchal cord Cord Blood was obtained: Yes ALEKSANDER RAMIREZ MD Feb 09, 2017 03:59
[2017-02-09 06:15] VITALS: BP 127/66; PULSE 73; RESP 18
[2017-02-09] MEDS ORDERED: LACTATED RINGER'S 1,000 ML IV* SCH (06:16)
[2017-02-09] MEDS ORDERED: MISOPROSTOL 200 MCG TAB PR PRN (06:30)
[2017-02-09] MEDS ORDERED: DIBUCAINE 1% 30 GM OINT PR PRN (06:30)
[2017-02-09] MEDS ORDERED: WITCH HAZEL/GLYCERIN PAD PR PRN (06:30)
[2017-02-09] MEDS ORDERED: DIPHENHYDRAMINE 25 MG CAP PO PRN (06:30)
[2017-02-09] MEDS ORDERED: CARBOPROST 250 MCG INJ IM PRN (06:30)
[2017-02-09] MEDS ORDERED: BENZOCAINE 20% 56 ML SPRAY TOP PRN (06:30)
[2017-02-09] MEDS ORDERED: OXYTOCIN 30 UNITS/LR 500 ML IV PRN (06:30)
[2017-02-09] MEDS ORDERED: METHYLERGONOVINE 0.2 MG INJ IM PRN (06:30)
[2017-02-09] MEDS ORDERED: HYDROCODONE/APAP (5/325) TAB PO PRN (06:30)
[2017-02-09] MEDS ORDERED: BENZONATATE 100 MG CAP PO PRN (06:30)
[2017-02-09] MEDS ORDERED: AZITHROMYCIN 250 MG TAB PO SCH (06:30)
[2017-02-09 08:00] VITALS: BP 115/57; PULSE 84; RESP 18
[2017-02-09] MEDS: SENNA/DOCUSATE NA (8.6MG/50MG) TAB PO SCH ×2 (08:39→21:40)
[2017-02-09] MEDS: OXYTOCIN 30 UNITS/LR 500 ML IV SCH ×2 (08:49→17:56)
[2017-02-09] MEDS ORDERED: NITROFURANTOIN (SR) 100 MG CAP PO SCH (09:00)
[2017-02-09] MEDS ORDERED: CEPHALEXIN 500 MG CAP PO SCH (09:00)
[2017-02-09 12:00] VITALS: BP 102/50; PULSE 78; RESP 16
[2017-02-09] MEDS ORDERED: IBUPROFEN 600 MG TAB PO SCH ×2 (12:00)
[2017-02-09] MEDS: IBUPROFEN 600 MG TAB PO SCH ×3 (12:13→23:57)
[2017-02-09 16:00] VITALS: BP 104/53; PULSE 67; RESP 17
[2017-02-09 20:20] VITALS: BP 123/71; PULSE 77; RESP 18
[2017-02-10] MEDS: IBUPROFEN 600 MG TAB PO SCH ×4 (05:33→23:54)
[2017-02-10 08:08] VITALS: BP 121/57; PULSE 76; RESP 18
[2017-02-10] MEDS ORDERED: INFLUENZA VIRUS VACCINE 0.5 ML (DISPENSING) IM* ONE (09:00)
--- NOTE | 2017-02-10 09:07 | HP ---
Date/Time of Note Date/Time of Note DATE: 02/10/17 TIME: 09:06 OB - History Hx of Present Free Text/Dictation term preg in labor Care: Good Care Ultrasounds: Normal mid trimester US Obstetrical Complications: None Medical Complications: None Past Family/Social History * Past Medical, Surgical, Family and Obstetric Histories reviewed from chart. OB Admission Exam Vital Signs Vital Signs Vital Signs Date Time Temp Pulse Resp B/P Pulse Ox O2 Delivery O2 Flow Rate FiO2 02/10/17 08:08 97.7 76 18 121/57 Room Air Physical Exam HEENT: WNL Heart: Rhythm Normal Lungs: Clear, Equal Abdomen: WNL Extremities: Normal Reflexes: Normal Cervical Dilatation: 10cm Effacement: 100% Station: +3 Amniotic Fluid: Clear Heart Rate: 130's Decelerations: No Decelerations Contractions on Admission: None Last 72 hours Lab Results CBC & BMP 02/08/17 00:06 OB Assessment/Plan Reason for admission: active labor Plan: Expectant Management OLVIN HANLEY MD Feb 10, 2017 09:07
--- NOTE | 2017-02-10 09:08 | DS ---
Date/Time of Note Date/Time of Note DATE: 02/10/17 TIME: 09:07 Discharge Summary Admission/Discharge Info Admit Date/Time Feb 07, 2017 at 22:40 Discharge Date/Time Discharge Diagnosis term preg , vaginal delivery Patient Condition: Stable Hospital Course unremarkable Home Meds Active Scripts Nitrofurantoin Monohyd Macrocr* (Macrobid*) 100 Mg Capsr, 100 MG PO BID for 5 Days, #10 CAP Prov:Ghazala Javier PA-C 07/19/16 Cephalexin* (Keflex*) 500 Mg Capsule, 500 MG PO QID for 7 Days, CAP Prov:SHERRIE NELSON 07/09/16 Benzonatate* (Tessalon Perle*) 100 Mg Capsule, 100 MG PO Q8H Y for COUGH, #30 CAP Prov:TRISTA ALFONSO PA-C 05/15/16 Azithromycin* (Zithromax*) 250 Mg Tablet, 250 MG PO .ZPACK DIRECTED, #6 TAB TAKE 500 MG (2 TABS) THE FIRST DAY THEN 250 MG (1 TAB) DAYS 2-5 Prov:TRISTA ALFONSO PA-C 05/15/16 Ibuprofen* (Motrin*) 600 Mg Tab, 600 MG PO Q6, #30 TAB Prov:TRISTA ALFONSO PA-C 05/15/16 Ibuprofen* (Motrin*) 600 Mg Tab, 600 MG PO Q6, #30 TAB Prov:TRISTA ALFONSO PA-C 11/12/15 Reported Medications Vit-Fe Fumarate-FA* (Umair Tablet*) 1 Tab Tablet, 1 TAB PO DAILY, TAB 03/22/14 Primary Care Provider Care Physician No Primary OLVIN HANLEY MD Feb 10, 2017 09:08
[2017-02-10] MEDS: SENNA/DOCUSATE NA (8.6MG/50MG) TAB PO SCH ×2 (09:16→21:40)
--- NOTE | 2017-02-10 11:58 | CONS ---
Date/Time of Note Date/Time of Note DATE: 02/10/17 TIME: 11:56 Consultation Date/Type/Reason Admit Date/Time Feb 07, 2017 at 22:40 Initial Consult Date 02/09/17 Type of Consultation: Anesthesiology Reason for Consultation Follow up 24 HR Interval Summary Free Text/Dictation Pt seen and examined on 02/09/17 is POD#1 s/p . Pt had an epidural for pain control. States her pain is adequately controlled. No N/V/D/C/SHAY/Numbness in lower extremities. Will follow up. Constitutional: improved, no complaints Exam/Review of Systems Vital Signs Vitals Vital Signs Date Time Temp Pulse Resp B/P Pulse Ox O2 Delivery O2 Flow Rate FiO2 02/10/17 08:08 97.7 76 18 121/57 Room Air Intake and Output 02/09/17 02/09/17 02/10/17 14:59 22:59 06:59 Intake Total 500 ml Output Total 900 ml Balance -400 ml Results Result Diagram: 02/08/17 0006 Medications Medications Current Medications Acetaminophen/ Hydrocodone Bitart ([place] (5/325)) 1 tab Q4H PRN PO PAIN LEVEL 1 -5 Last administered on 02/09/17 08:39; Admin Dose 1 TAB; Start 02/09/17 at 06: 30 Diphenhydramine HCl (Benadryl) 25 mg Q6H PRN PO PRURITUS; Start 02/09/17 at 06: 30 Senna/Docusate Sodium 1 tab 1 tab BID PO Last administered on 02/10/17 09:16; Admin Dose 1 TAB; Start 02/09/17 at 09:00 Oxytocin/Lactated Ringer's 500 ml @ 0 mls/hr ONCE PRN IV For Hemorrhage Management; Start 02/09/17 at 06:30 Methylergonovine Maleate (Methergine) 0.2 mg ONCE PRN IM VAGINAL BLEEDING; Start 02/09/17 at 06:30 Carboprost Tromethamine (Hemabate) 250 mcg ONCE PRN IM VAGINAL BLEEDING; Start 02/09/17 at 06:30 Misoprostol (Cytotec) 1,000 mcg ONCE PRN [place] VAGINAL BLEEDING; Start 02/09/17 at 06:30 Benzonatate (Tessalon) 100 mg Q8H PRN PO COUGH; Start 02/09/17 at 06:30 Ibuprofen (Motrin) 600 mg Q6 PO Last administered on 02/10/17t 05:33; Admin Dose 600 MG; Start 02/09/17 at 12:00 KATEY LAWSON Feb 10, 2017 11:58
[2017-02-10 16:48] VITALS: BP 120/56; PULSE 72; RESP 18
[2017-02-10 19:45] VITALS: BP 122/60; PULSE 66; RESP 20
[2017-02-11 04:15] VITALS: BP 118/60; PULSE 65; RESP 18
[2017-02-11] MEDS: IBUPROFEN 600 MG TAB PO SCH ×2 (06:00→12:27)
[2017-02-11 08:00] VITALS: BP 124/63; PULSE 67; RESP 18
[2017-02-11] MEDS: SENNA/DOCUSATE NA (8.6MG/50MG) TAB PO SCH (08:58)
[2017-02-11 13:42] LABS: RUBELLA ANTIBODY - IGG <0.90 index
[2017-02-11 13:42] LABS: RUBELLA ANTIBODY - IGG <0.90 index
== END 2017-02-11 14:30 | disposition home or self-care (01) | DRG 775 ==
LOC: OBT 20:10 → E/R 20:11 → L-D 20:12 → OBT 22:40 → L-D 22:40 → PP1 02-09 06:14
PROVIDERS: ADMIT Obstetrics & Gynecology; ATTEND Obstetrics & Gynecology
PROC: 10E0XZZ Delivery of Products of Conception, External Approach (ICD-10-PCS; principal; 2017-02-09)
PROC: 0KQM0ZZ Repair Perineum Muscle, Open Approach (ICD-10-PCS; 2017-02-09)
DX: O70.1 Second degree perineal laceration during delivery (principal); Z37.0 Single live birth; Z3A.38 38 weeks gestation of pregnancy
CPT/HCPCS: 62319; 76815; 81003; 84112; 85025; 85610; 85730; 86592; 86703; 86762; 86900; 86901; 87340; 90686; G0463; J0595; J2590; J3010; J7120

== ENCOUNTER 2017-03-09 03:18 | Emergency (ER) | payer MEDICAID ==
[~2017-03-09] VITALS: Ht 162.6 cm; Wt 77.5 kg
[~2017-03-09 03:18] MED LIST changes: -AZIT250T94 PO; -BENZ100C70 PO; -CEPH-443 PO; -IBUP-1542 PO; -NITR-58 PO
[2017-03-09 03:27] VITALS: Ht 162.6 cm; Wt 77.5 kg
--- NOTE | 2017-03-09 04:13 | ERD ---
ER Documentation Chief Complaint Chief Complaint painful/burning urination x 2 days HPI 36-year-old female presenting with dysuria. She recently had a baby a few weeks ago. She complains of burning with urination with urgency and frequency. No hematuria, fever, chills, nausea, or vomiting. She has mild suprapubic pain but denies any flank pain. ROS All systems reviewed and are negative except as per history of present illness. Medications Home Meds Active Scripts Cephalexin* (Keflex*) 500 Mg Capsule, 500 MG PO BID for 7 Days, CAP Prov:APOLLO REED MD 03/09/17 Reported Medications Vit-Fe Fumarate-FA* (Umair Tablet*) 1 Tab Tablet, 1 TAB PO DAILY, TAB 03/22/14 Allergies Allergies: Coded Allergies: Penicillins (Verified Allergy, Intermediate, RASH, 03/09/17) PMhx/Soc Medical and Surgical Hx: pt denies Medical Hx, pt denies Surgical Hx History of Surgery: No Anesthesia Reaction: No Hx Neurological Disorder: No Hx Respiratory Disorders: No Hx Cardiac Disorders: No Hx Psychiatric Problems: No Hx Miscellaneous Medical Probl: No Hx Alcohol Use: No Hx Substance Use: No Hx Tobacco Use: No FmHx Family History: No diabetes Physical Exam Vitals Vital Signs Date Time Temp Pulse Resp B/P Pulse Ox O2 Delivery O2 Flow Rate FiO2 03/09/17 03:27 77.5 74 20 129/68 99 Physical Exam Const: Well-appearing, no apparent distress, nontoxic Head: Atraumatic Eyes: Normal Conjunctiva ENT: Normal External Ears, Nose and Mouth. Neck: Full range of motion..~ No meningismus. Resp: Clear to auscultation bilaterally Cardio: Regular rate and rhythm, no murmurs Abd: Soft, minimal suprapubic tenderness, non distended. Normal bowel sounds Skin: No petechiae or rashes Back: No midline or flank tenderness Ext: No cyanosis, or edema Neur: Awake and alert Psych: Normal Mood and Affect Results 24 hrs Laboratory Tests Test 03/09/17 04:19 Urine Color YELLOW Urine Clarity SLIGHTLY CLOUDY Urine pH 6.0 Urine Specific [place] 1.009 Urine Ketones NEGATIVEmg/dL Urine Nitrite NEGATIVEmg/dL Urine Bilirubin NEGATIVEmg/dL Urine Urobilinogen NEGATIVEmg/dL Urine Leukocyte Esterase 3+Harry/ul Urine Microscopic RBC 11/HPF Urine Microscopic WBC > 182/HPF Urine Squamous Epithelial Cells FEW/HPF Urine Bacteria FEW/HPF Urine Hemoglobin 3+mg/dL Urine Glucose NEGATIVEmg/dL Urine Total Protein NEGATIVEmg/dl Procedures/MDM Labs reviewed and interpreted: Urinalysis consistent with infection MDM Patient presents with symptoms concerning for UTI. No flank pain or CVAT to suggest pyelonephritis. No other symptoms or risk factors concerning for STI. UA shows evidence of UTI. Patient discharged with course of antibiotics. Return precautions discussed and patient understands. Follow up with PCP in 1 week or sooner if not improving. Prescription for Keflex given. Departure Diagnosis: Primary Impression: UTI (urinary tract infection) Urinary tract infection type: acute cystitis Hematuria presence: without hematuria Qualified Code: N30.00 - Acute cystitis without hematuria Condition: Stable EKAPOLLO HASSAN MD Mar 09, 2017 04:13
[2017-03-09] MEDS ORDERED: CEPH-443 PO (04:59)
== END 2017-03-09 05:42 | disposition home or self-care (01) ==
LOC: FTE 03:18
DX: N30.00 Acute cystitis without hematuria (principal)
CPT/HCPCS: 81001; Z7502; 99283

== ENCOUNTER 2017-08-31 06:08 | Emergency (ER) | END 2017-08-31 09:00 | disposition home or self-care (01) ==

== ENCOUNTER 2017-11-01 06:25 | Emergency (ER) | END 2017-11-01 07:17 | disposition home or self-care (01) ==

== ENCOUNTER 2017-12-03 06:41 | Emergency (ER) | END 2017-12-03 09:34 | disposition home or self-care (01) ==